=== PATIENT | female | born 1945 | race Caucasian/White ===

== ENCOUNTER 2017-01-19 05:40 | Outpatient (CLI) | payer MEDICARE, BC ==
[~2017-01-19] VITALS: Ht 165.1 cm; Wt 82.1 kg
--- NOTE | ~2017-01-19 | CATH ---
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 Diagnostic Recommendations Add aspirin and statin. Procedure Description The patient was brought to the diagnostic cardiac catheterization-EP laboratory in the fasting, non-sedated state. Informed consent was obtained in the written and verbal form after the risks and benefits were explained. The patient had no further questions and agreed to proceed. The planned puncture-incision site(s) were shaved and prepped with ChloraPrep and draped in the usual sterile manner. Conscious sedation, supplemental oxygen, and pain control medications were delivered by a registered nurse under physician guidance. Surface ECG rhythm, blood pressure measurement, and pulse oximetry were monitored throughout the procedure. Arterial access. The access site was infiltrated with lidocaine. The vessel was entered with the Seldinger technique. A sheath was advanced into the vessel and used for catheter placement. Selective left coronary angiography. A catheter was advanced into the left coronary vessel ostium under Fluoroscopic guidance. Contrast was injected by hand. Images were obtained in multiple projections. Selective right coronary angiography. A catheter was advanced into the right coronary vessel ostium under fluoroscopic guidance. Contrast was injected by hand. Images were obtained in multiple projections. Left heart catheterization. A catheter was advanced across the aortic valve to the left ventricle under fluoroscopic guidance. Resting hemodynamics were obtained. Arterial artery hemostasis was achieved. The patient was transferred to a regular nursing floor via cart accompanied by a nurse. The patient left the laboratory in stable condition. Diagnostic Cath Status: Elective Procedure Procedure Type Diagnostic procedure:Angiography:, Coronary Angios w/[facility] Indications: Abnormal Stress Test and Abnormal ECG. The procedure was explained in detail to the patient. Risks, complications and alternative treatments were reviewed. Written consent was obtained. Medications Reviewed with Patient prior to Procedure. Angiographic Findings Dominance: Right Cardiac Arteries and Lesion Findings LMCA: Normal (0% Stenosis). LAD: Diagonal small. Lesion on Mid LAD: 20% stenosis . Lesion on Dist LAD: 20% stenosis . LCx: OM patent. Lesion on Prox CX: Ostial.60% stenosis . RCA: Normal (0% Stenosis). Ramus: Lesion on Ramus: Ostial.30% stenosis . Coronary Tree Procedure Data Procedure Date Date: 01/19/2017Start: 08:29 AMEnd: 08:44 AM Entry Locations - Retrograde Percutaneous access was performed through the Right Radial artery (Primary location). A 6 Fr sheath was inserted. Hemostasis was successfully obtained using Mechanical Compression. Closure Comments: R band with 13 cc air deployed by NATALIE Meade.. Procedure Medications Order and Administration + + + +--------+ !Time !Medication !Dosage !Route ! + + + +--------+ !01/19/2017 08:27 AM !Versed !1 mg !I.V. ! + + + +--------+ !01/19/2017 08:32 AM !Radial Verapamil !1.5 mg !I.A. ! + + + +--------+ !01/19/2017 08:33 AM !Radial Nitroglycerin !200 mcg !I.A. ! + + + +--------+ !01/19/2017 08:33 AM !Radial Heparin (ACC_3) !5000 units !I.A. ! + + + +--------+ Devices Used - A6 Fr. BS JR 4 Diag. Catheterwas used for:Right coronary angiography. - A6 Fr. BS JL 3.5 Diag. Catheterwas used for:Left coronary angiography. Contrast Material - Isovue 90418 ml Fluoroscopy Time: Diagnostic: 2:12 minutes. Total: 2:12 minutes. Fluoroscopy Dose: Diagnostic: 710 mGy. Total: 710 mGy. Estimated Blood Loss: 5 ml. Medical History Performed Procedures and Imaging Results - Stress testing with SPECT MPIwas performed. Results were: Positive. Risk/Extent of ischemia was: Intermediate risk. Allergies - Sulfa. Risk Factors The patient risk factors include:hypertension, last creatinine: 0.8 mg/dl and creatinine clearance: 81.17 ml/min. Admission Data Admission Date: 01/19/2017 Admission Time: 05:40 AM Admit Source: Other Insurance Payors: Medicare. Admission Medications + +------+-------+ + + + + !Medication!Dosage!Times !Last !Last !Administered !Comments ! ! ! !Per Day!Delivery !Delivery ! ! ! ! ! ! !Date !Time ! ! ! + +------+-------+ + + + + !ARB (any) ! ! ! ! !Yes ! ! + +------+-------+ + + + + Clinical Evaluation Leading to Procedure - The patient's CAD presentation was assessed as: Symptom unlikely to be ischemic. - There were no anginal symptoms. - The patient has been in a state of heart failure within the past two weeks. - The patient's heart failure status was assessed as NYHA Class I. Snapshots Hemodynamics Condition: Rest O2 Consumption: Estimated: 162.03Heart Rate: 54 bpm Pressures (mmHg) +-----+ + !Site !Pressure ! +-----+ + !LV !121/0 ,2 ! +-----+ + !LV !106/0 ,2 ! +-----+ + !AO !104/53 (75) ! +-----+ + !LV !107/0 ,3 ! +-----+ + !AO !105/46 (75) ! +-----+ + !AO !116/61 (84) ! +-----+ + Valve Gradients and Areas + +---------+---------+---------+ +---------+ + !Valve !Peak !Mean !Area !Index !Flow !Source ! + +---------+---------+---------+ +---------+ + !Aortic !5 !7 ! ! ! ! ! + +---------+---------+---------+ +---------+ + !Aortic !5 !7 ! ! ! ! ! + +---------+---------+---------+ +---------+ + Shunts Oxygen Values O2 Capacity 180.88 O2 Consumption 162.03 Discharge Data Discharge Date: 01/19/2017 Hospital Status: Outpatient Signatures dtt: Heather Keita dtd: 01/19/17 0829 Physician Self Edit
[~2017-01-19 05:40] MED LIST: ARICEPT10 MG PO; COZAAR50 MG PO; NAMENDA XR28 MG PO; [UNRECOGNIZED DRUG - OTHER] PO
[2017-01-19 06:24] LABS: BASOPHIL % 0.4 %; EOSINOPHIL % 0.8 %; HEMOGLOBIN 13.3 g/dL (10.0-15.0); IMMATURE GRANULOCYTE % 0.4 %; LYMPHOCYTE # 1.7 K/uL (0.8-4.0); LYMPHOCYTE % 34.8 %; MCH 28.9 pg (27.0-34.0); MCHC 33.3 gm/dL (32.0-36.5); MCV 86.8 fl (83.0-98.0); MONOCYTE # 0.4 K/uL (0.0-1.0); MONOCYTE % 7.5 %; MPV 9.9 fl (9.4-12.4); NEUTROPHIL # (ANC) 2.7 K/uL (1.8-7.8); NEUTROPHIL % 56.1 %; NRBC % 0 /100WBC (0-0.00); PLATELET COUNT 177 K/uL (150-450); RBC 4.61 M/uL (3.50-5.50); RDW-CV 13.6 % (11.9-14.6); WBC 4.8 K/uL (4.0-11.0)
[2017-01-19 06:32] LABS: INR - (THERAPEUTIC) 0.95 (0.92-1.07); PTT 27 SECONDS (25-32)
[2017-01-19 06:45] LABS: ALBUMIN 3.7 gm/dL (3.5-5.0); ALK PHOS 81 IU/L (33-138); ALT 22 IU/L (12-78); AST 15 IU/L (10-40); BLOOD UREA NITROGEN 13 mg/dL (6-24); CALCIUM 9.1 mg/dL (8.5-10.5); CHLORIDE 111 mMol/L (96-110); CO2 27 mMol/L (22-32); CREATININE 0.8 mg/dL (0.5-1.1); SODIUM 144 mMol/L (135-145); TOTAL BILIRUBIN 1.4 mg/dL (0.0-1.5); TOTAL PROTEIN 7.3 g/dL (6.0-8.4)
[2017-01-19 06:47] LABS: ESTIMATED GFR (MDRD EQUATION) > 60
[2017-01-19] MEDS ORDERED: ASPIRIN LO-DOSE81 MG PO (09:37)
[2017-01-19] MEDS ORDERED: LIPITOR20 M1 PO (09:38)
== END 2017-01-19 12:08 | disposition disaster alternative care site (69) ==
LOC: GPCU 05:40 → GPOC 05:40
PROVIDERS: Internal Medicine Cardiovascular Disease
PROC: 4A023N7 Measurement of Cardiac Sampling and Pressure, Left Heart, Percutaneous Approach (ICD-10-PCS; principal; 2017-01-19)
PROC: B216YZZ Fluoroscopy of Right and Left Heart using Other Contrast (ICD-10-PCS; 2017-01-19)
DX: R94.39 Abnormal result of other cardiovascular function study (principal); I25.10 Atherosclerotic heart disease of native coronary artery without angina pectoris
CPT/HCPCS: C1894; J1644; J2001; J2250; J3010; J7030